=== PATIENT | female | born 1945 | race Caucasian/White ===

== ENCOUNTER → 2023-10-15 09:02 | Outpatient (REF) | payer MEDICARE, SELFPAY | LOC: HWWDC 09:02 | PROVIDERS: ATTENDING PHYSICIAN Obstetrics & Gynecology Gynecology; FAMILY PHYSICIAN Family Medicine | DX: Z12.31 Encounter for screening mammogram for malignant neoplasm of breast (principal) | CPT/HCPCS: 77063; 77067 ==

== ENCOUNTER 2023-12-20 06:33 | Day surgery (SDC) | payer MEDICARE, SELFPAY ==
[2023-11-26 13:12] VITALS: BMI 20.7
[2023-11-26 14:16] LABS: Hematocrit 33.8 % (37.0-47.0); Hemoglobin 11.6 g/dL (12.0-16.0); Mean Corp Hgb Conc. 34.3 g/dL (33.0-37.0); Mean Corpuscular Hgb 32.1 pg (27.0-31.0); Mean Corpuscular Volume 93.6 fL (81.0-99.0); Mean Platelet Volume 8.9 fL (7.4-10.4); Platelet Count 247 10^3/uL (130-400); Red Blood Cell Count 3.61 10^6/uL (4.20-5.40); Red Cell Dist. Width 12.9 % (11.5-14.5); White Blood Cell Count 4.5 10^3/uL (4.8-10.8)
[2023-11-26 14:48] LABS: ALT (SGPT) 19 U/L (0-35); AST (SGOT) 26 U/L (14-36); Albumin 4.3 g/dl (3.5-5.0); Alkaline Phosphatase 56 U/L (38-126); Blood Urea Nitrogen 20 mg/dl (7-17); Calcium 9.3 mg/dl (8.4-10.2); Carbon Dioxide 27 mmol/L (22-30); Chloride 103 mmol/L (98-107); Estimated Creatinine Clearance 65 ml/min; Glucose 94 mg/dl (70-99); Potassium 4.6 mmol/L (3.5-5.1); Sodium 140 mmol/L (135-145); Total Bilirubin 0.4 mg/dl (0.2-1.3); Total Protein 6.6 g/dl (6.3-8.2); eGFR > 60.00
[2023-11-27 11:31] LABS: Glycohemoglobin (HgbA1c) 5.1 % (4.0-5.6)
--- NOTE | 2023-12-07 10:45 | VNURNOTE ---
Patient is scheduled for an elective L DAMIEN on 12/20/23- she is a same day patient with Dr Bray. Spoke with patient prior to surgery. Introduced role of [facility] Liaison. Patient reports that she lives with spouse in a MULTI story home. Spouse is on
HD 3x/week and she is his primary CG.
There are 2 steps to enter and a flight of steps to the second floor.
There is a powder room on the carpentry foreman and recliner She currently functions independently. Patient has a cane and rolling walker.
She has had [facility] services after prior hip and knee surgeries.
PCP is Dr Efraín De La O.
Discussed [facility] joint protocol and post surgical plans. Patient reports that she spoke w/Jake GREGG and was cleared to have home PT x weeks and then start outpt PT (due to caregiving burden at home).
Patient will have [facility] services x 2 weeks and will then start outpatient PT.
Patient selects [facility] for home care needs [facility] Scheduled for 01/02.
Patient is in agreement with plan and states that her sister in law and /or son will be home with her. Son's GF may be assisting as well. Advised to bring RW with her day of surgery. [facility] referral placed in [facility].
Plan: [facility] per [facility] joint protocol (HOME PT X 2 WEEKS) then outpt PT at [facility] on 01/02
[2023-12-14 09:56] VITALS: BMI 20.7
[2023-12-14 15:22] VITALS: BMI 20.7
[2023-12-20] VITALS (13 sets, daily range): BP systolic 99–132; BP diastolic 58–84; BMI 20.7
[2023-12-20] MEDS: TYLENOL 650 MG PO (08:10)
[2023-12-20] MEDS: CELEBREX 200 MG PO (08:10)
[2023-12-20] MEDS: ANCEF 5 IV (12:51)
[2023-12-20] MEDS: CYKLOKAPRON 650 MG PO (13:44)
== END 2023-12-20 13:50 | disposition home or self-care (01) ==
LOC: SDS 06:33
PROVIDERS: ATTENDING PHYSICIAN Specialist; FAMILY PHYSICIAN Family Medicine
DX: M16.12 Unilateral primary osteoarthritis, left hip (principal); C50.919 Malignant neoplasm of unspecified site of unspecified female breast
CPT/HCPCS: 27130; C1776; C1713; 36415; 73502; 80053; 83036; 85027; 86850; 86900; 86901; 87070; 93005; 97162

== ENCOUNTER 2024-01-14 07:57 | Outpatient (RCR) | payer MEDICARE, SELFPAY | END 2024-01-14 23:59 | disposition home or self-care (01) | LOC: RPT 07:57 | PROVIDERS: ATTENDING PHYSICIAN Physician Assistant Surgical; FAMILY PHYSICIAN Family Medicine | DX: Z47.1 Aftercare following joint replacement surgery (principal); R26.89 Other abnormalities of gait and mobility; Z73.6 Limitation of activities due to disability; M62.81 Muscle weakness (generalized); Z96.643 Presence of artificial hip joint, bilateral | CPT/HCPCS: 97110; 97140; 97162 ==

== ENCOUNTER → 2024-01-27 13:51 | Outpatient (REF) | payer MEDICARE, SELFPAY | LOC: WDC 13:51 | PROVIDERS: ATTENDING PHYSICIAN Obstetrics & Gynecology Gynecology; FAMILY PHYSICIAN Family Medicine | DX: R92.2 Inconclusive mammogram (principal) | CPT/HCPCS: 76641 ==

== ENCOUNTER 2024-02-14 06:56 | Outpatient (RCR) | payer MEDICARE, SELFPAY | END 2024-02-14 23:59 | disposition home or self-care (01) | LOC: RPT 06:56 | PROVIDERS: ATTENDING PHYSICIAN Physician Assistant Surgical; FAMILY PHYSICIAN Family Medicine | DX: Z47.1 Aftercare following joint replacement surgery (principal); Z96.643 Presence of artificial hip joint, bilateral; Z73.6 Limitation of activities due to disability; R26.89 Other abnormalities of gait and mobility; M62.81 Muscle weakness (generalized) | CPT/HCPCS: 97110; 97112; 97140; 97530 ==

== ENCOUNTER 2024-02-18 06:35 | Outpatient (RCR) | payer MEDICARE, SELFPAY | END 2024-02-18 15:00 | disposition home or self-care (01) | LOC: RPT 06:35 | PROVIDERS: ATTENDING PHYSICIAN Physician Assistant Surgical; FAMILY PHYSICIAN Family Medicine | DX: Z47.1 Aftercare following joint replacement surgery (principal); Z96.643 Presence of artificial hip joint, bilateral; Z96.642 Presence of left artificial hip joint; Z73.6 Limitation of activities due to disability; R26.89 Other abnormalities of gait and mobility; M62.81 Muscle weakness (generalized) | CPT/HCPCS: 97110; 97112 ==

== ENCOUNTER → 2024-03-01 08:48 | Outpatient (REF) | payer MEDICARE, SELFPAY ==
--- NOTE | 2024-03-01 13:40 | OID.BR.INTR ---
JACQUELINED Breast Navigator - Initial
- -
Date of Contact: 03/01/24
Met with patient. Will follow up as needed per protocol.
== END ==
LOC: WDC 08:48
PROVIDERS: ATTENDING PHYSICIAN Obstetrics & Gynecology Gynecology; FAMILY PHYSICIAN Family Medicine
DX: N63.12 Unspecified lump in the right breast, upper inner quadrant (principal)
CPT/HCPCS: 88305; 19083; A4648

== ENCOUNTER → 2025-02-14 08:32 | Outpatient (REF) | payer MEDICARE, SELFPAY | LOC: MRI 08:32 | PROVIDERS: ATTENDING PHYSICIAN Psychiatry & Neurology Neurology; FAMILY PHYSICIAN Family Medicine | DX: G56.01 Carpal tunnel syndrome, right upper limb (principal) | CPT/HCPCS: 73221 ==